=== PATIENT | male | born 1945 | race Caucasian/White ===

== ENCOUNTER 2018-07-20 16:37 | Emergency (ER) | payer MEDICARE ==
[~2018-07-20] VITALS: Ht 182.9 cm; Wt 111.4 kg
[~2018-07-20 16:37] MED LIST: CALCIUM CARBON600 M1 PO; CEPHALEXIN500 M1 PO; PRINIVIL20 MG PO; TOPROL XL100 MG PO; ZOCOR 20MG20 MG PO
[2018-07-20 16:44] VITALS: TEMP 97.8
[2018-07-20] MEDS ORDERED: HCTZ12.5TAB PO (17:01)
[2018-07-20] MEDS ORDERED: WELLBUTRIN XL300 M1 PO (17:02)
[2018-07-20 17:26] LABS: BASO % 0.3 % (0.0-2.0); EOS # 0.1 (0.0-0.7); EOS % 0.9 % (0-4.0); GRAN # 12.5 (1.4-6.5); GRAN % 82.8 % (42.2-75.2); HEMATOCRIT 49.9 % (42.0-52.0); HEMOGLOBIN 16.5 g/dl (13.5-18.0); LYMPH # 1.7 (1.2-3.4); LYMPH % 11.5 % (20.0-51.0); MEAN CELL VOLUME 89 fl (80.0-100.0); MEAN CORPUSCULAR HEMOGLOBIN 30 pg (27.0-31.0); MEAN CORPUSCULAR HGB CONC 33 g/dl (33.0-37.0); MEAN PLATELET VOLUME 9.6 fl (7.4-10.4); MONO # 0.5 (0.1-0.6); MONO % 3.5 % (1.7-9.3); PLATELET COUNT 222 K/mm3 (130-400); RED BLOOD COUNT 5.58 M/mm3 (4.20-5.60); REDCELL DISTRIBUTION WIDTH-CV 12.3 % (11.5-14.5)
[2018-07-20 17:40] LABS: PROTHROMBIN TIME 11.6 SECONDS (9.7-12.8)
[2018-07-20 17:43] LABS: ALBUMIN 4.5 gm/dL (3.5-5.0); BILIRUBIN,TOTAL 1.5 mg/dL (0.0-1.0); CALCIUM 8.6 mg/dL (8.4-10.2); CREATININE, serum 1.42 mg/dL (0.66-1.25); POTASSIUM 4.5 mmol/L (3.4-5.0); TOTAL PROTEIN 7.9 gm/dL (6.4-8.2)
[2018-07-21 00:45] VITALS: BP 105/59
[2018-07-21 01:20] VITALS: PULSE 60
== END 2018-07-21 01:20 | disposition short-term general hospital (02) ==
LOC: COL.ER 16:37
PROVIDERS: Emergency Medicine
DX: S32.401A Unspecified fracture of right acetabulum, initial encounter for closed fracture (principal); S32.10XA Unspecified fracture of sacrum, initial encounter for closed fracture; S32.501A Unspecified fracture of right pubis, initial encounter for closed fracture; I10 Essential (primary) hypertension; Z95.1 Presence of aortocoronary bypass graft; Z79.82 Long term (current) use of aspirin; W01.0XXA Fall on same level from slipping, tripping and stumbling without subsequent striking against object, initial encounter; Y92.009 Unspecified place in unspecified non-institutional (private) residence as the place of occurrence of the external cause
CPT/HCPCS: J2405; J3010

== ENCOUNTER 2018-09-25 09:57 | Inpatient (IN) | payer MEDICARE, OTHER ==
[2018-09-25] VITALS (11 sets, daily range): BP systolic 94–131; BP diastolic 38–70; PULSE 59–83; TEMP 97.2–98.8
[~2018-09-25] VITALS: Ht 188 cm; Wt 109.1 kg
[~2018-09-25 09:57] MED LIST changes: +HCTZ12.5TAB PO; +WELLBUTRIN XL300 M1 PO
[2018-09-25 11:05] LABS: BASO % 0.3 % (0.0-2.0); EOS # 0.1 (0.0-0.7); EOS % 0.7 % (0-4.0); GRAN # 11.1 (1.4-6.5); GRAN % 82.2 % (42.2-75.2); HEMATOCRIT 42.4 % (42.0-52.0); HEMOGLOBIN 14.1 g/dl (13.5-18.0); LYMPH # 1.7 (1.2-3.4); LYMPH % 12.8 % (20.0-51.0); MEAN CELL VOLUME 89 fl (80.0-100.0); MEAN CORPUSCULAR HEMOGLOBIN 30 pg (27.0-31.0); MEAN CORPUSCULAR HGB CONC 33 g/dl (33.0-37.0); MEAN PLATELET VOLUME 9.7 fl (7.4-10.4); MONO # 0.5 (0.1-0.6); MONO % 3.6 % (1.7-9.3); PLATELET COUNT 242 K/mm3 (130-400); RED BLOOD COUNT 4.76 M/mm3 (4.20-5.60); REDCELL DISTRIBUTION WIDTH-CV 13.1 % (11.5-14.5)
[2018-09-25 11:12] LABS: ALBUMIN 3.8 gm/dL (3.5-5.0); BILIRUBIN,TOTAL 1.3 mg/dL (0.0-1.0); CALCIUM 8.6 mg/dL (8.4-10.2); CREATININE, serum 1.37 mg/dL (0.66-1.25); POTASSIUM 4.2 mmol/L (3.4-5.0); TOTAL PROTEIN 6.7 gm/dL (6.4-8.2)
[2018-09-25 11:27] LABS: INR 1.1 (0.8-3.0); PROTHROMBIN TIME 12.7 SECONDS (9.7-12.8)
[2018-09-25 11:29] LABS: PARTIAL THROMBOPLASTIN TIME 32.9 SECONDS (26.0-37.0)
[2018-09-25] MEDS ORDERED: ASPIRIN E.C. 8181 MG PO (13:01)
--- NOTE | 2018-09-25 13:19 | NUR ---
Patient up from ER by larry. Alert and oriented x 3. 5 page complete. RLE appears shortened and externally rotated. Pedal pulse to right foot faint. Edema +2 to right lower extremity and +1 to left lower extremity. Patient able to feel touch and move toes of RLE. Toes appear blue to right foot. Cap refill <3 to BLE. Skin tear noted to right elbow, patient states from fall. VSS. Marty hose applied to LLE. States pain only when moving. Denies further needs at this time.
--- NOTE | 2018-09-25 13:39 | NUR ---
Moiz from surgery here to take patient to OR.
--- NOTE | 2018-09-25 16:06 | NUR ---
Patient up to room 341 by bed from ER. Alert and oriented x3. Patient oriented to room. Educated patient on sputum culture. IV to left hand infusing via pump per orders. Denies pain at this time. Denies further needs at this time.
--- NOTE | 2018-09-25 17:55 | NUR ---
Patient up from OR. Family in room. Patient drowsy. VSS. Denies pain or further needs at this time.
--- NOTE | 2018-09-25 19:13 | NUR ---
Patient alert and confused, pulled out IV. Bed alarm on.
--- NOTE | 2018-09-25 19:52 | NUR ---
Initiated iv x1 attempt to Right forarm. Tolerated procedure well. Reported off to hourly shift manager.
--- NOTE | 2018-09-25 20:00 | NUR ---
Patient alert, confused to place and time of day. States "I just need to take a leak". Reminded of ortiz catheter. Has new IV site to right forearm without redness or swelling, IVF infusing at 60cc/hr. Has dressings x2 to right hip, D/I, ice pack applied. Has oxygen at 1L/nc. Lungs diminished. Has bilateral lower extremity edema, GRACIE and SCD's on.
--- NOTE | 2018-09-26 00:40 | NUR ---
Patient restless, thinks he needs to go lay down in his bed. Offered pain meds for right hip pain. Takes [place] 5/325 2 tabs for pain 6/10 with movement. IVF continue to right forearm without redness or swelling.
[2018-09-26 03:45] VITALS: BP 93/46; PULSE 61; TEMP 97.5
--- NOTE | 2018-09-26 06:00 | NUR ---
Patient awake, no concerns offered. Oriented x2. Has not been impulsive and has left his IV site in this shift.
[2018-09-26 06:49] LABS: BASO % 0.2 % (0.0-2.0); CALCIUM 7.5 mg/dL (8.4-10.2); CREATININE, serum 1.76 mg/dL (0.66-1.25); EOS % 0.2 % (0-4.0); GRAN # 7.6 (1.4-6.5); GRAN % 62.5 % (42.2-75.2); LYMPH # 3.1 (1.2-3.4); LYMPH % 25.8 % (20.0-51.0); MEAN CELL VOLUME 90 fl (80.0-100.0); MEAN CORPUSCULAR HGB CONC 32 g/dl (33.0-37.0); MONO # 1.3 (0.1-0.6); MONO % 10.8 % (1.7-9.3); PLATELET COUNT 210 K/mm3 (130-400); POTASSIUM 4.8 mmol/L (3.4-5.0); RED BLOOD COUNT 3.58 M/mm3 (4.20-5.60); REDCELL DISTRIBUTION WIDTH-CV 13.3 % (11.5-14.5)
[2018-09-26 06:56] LABS: HEMATOCRIT 32.2 % (42.0-52.0); HEMOGLOBIN 10.4 g/dl (13.5-18.0); MEAN CORPUSCULAR HEMOGLOBIN 29 pg (27.0-31.0); PRE ALBUMIN 18.6 mg/dL (17.6-36.0)
[2018-09-26 07:25] VITALS: BP 94/38; PULSE 61; TEMP 98.1
[2018-09-26 07:50] VITALS: BP 94/38; PULSE 61; TEMP 98.1
--- NOTE | 2018-09-26 08:50 | NUR ---
Patient in bed resting. Alert and oriented x 3. Shift assessment complete. x3 incision to lateral thigh, CDI with gauze. States pain 4-5/10 to right hip, given medications per orders. Pedal pulses intact. Edema noted to BLE, +1 to left lower extremity and +2 to right lower extremity. Cap refill <3 sec. Assisted patient to order breakfast. Denies further needs at this time.
--- NOTE | 2018-09-26 10:26 | NUR ---
SW attended clinical rounds to discuss discharge plannning. Patient lives independently at home with his . Patient's PCP is Dr Booth and he obtains prescriptions from [facility]. There is no DME or home health services reported. Doctor spoke with patient about needing post acute rehab and mentioned IPR. SW followed up with patient about rehab options. Patient is interested in IPR but would like to speak with his about choices. SW will follow up later today.
--- NOTE | 2018-09-26 10:30 | NUR ---
Pt. VSS. Lung sounds clear to auscultation. Bowel sounds active x4 quadrants. Pt. up to chair with PT. Tolerated well.
--- NOTE | 2018-09-26 10:51 | NUR ---
First visit from the inside phone sales. No needs right now.
--- NOTE | 2018-09-26 10:58 | NUR ---
Notified Jeaneth LI of low urine output, increased fluids to 100ml/hr. Will continue to monitor
[2018-09-26 12:30] LABS: COLLECTION METHOD CATHETER
[2018-09-26 12:42] VITALS: BP 103/40; PULSE 66; TEMP 97.8
[2018-09-26 12:52] LABS: AMORPHOUS CRYSTAL Present /uL; HYALINE CAST >12 /lpf; MUCOUS Present /lpf; PH 5 (5-8); SQUAMOUS EPITHELIAL None Seen /hpf; URINE APPEARANCE Cloudy; URINE BACTERIA Moderate /hpf; URINE BILIRUBIN Negative (NEGATIVE); URINE BLOOD 3+ (NEGATIVE); URINE COLOR Amber; URINE GLUCOSE 1+ (NEGATIVE); URINE KETONE Trace (NEGATIVE); URINE LEUKOCYTE ESTERASE Trace (NEGATIVE); URINE NITRATE Negative (NEGATIVE); URINE PROTEIN(semi-quant) 2+ (NEGATIVE); URINE RBC >50 /hpf
--- NOTE | 2018-09-26 13:18 | NUR ---
Pt. refused lunch, consumed chocolate shake brought in by family. CMS checks to BLE WNL. Pt. transferred from chair to bed with x3 assist and gaitbelt.
--- NOTE | 2018-09-26 15:21 | NUR ---
LETITIA spoke with patient's , Jenniffer ([phone]), about rehab choices. LETITIA reported patient was interested in IPR but did not have a second choice. Jenniffer reports patient was in [place] for 6 weeks in June when he fractured his hip. Jenniffer reports she would like the second choice to be [facility] rapid recovery. LETITIA will fax referral to [facility].
[2018-09-26 16:36] VITALS: BP 126/44; PULSE 68; TEMP 97.2
--- NOTE | 2018-09-26 18:22 | NUR ---
Contacted Irma GRIFFIN, patient on Q6 accuchecks, history of DM. No episodes of hyper or hypoglycemia currently. Will Discontinue accuchecks.
--- NOTE | 2018-09-26 18:24 | NUR ---
Patient in bed resting. Denies pain at this time. Was up in chair throughout the day. IV fluids infusing per orders to right forarm. Chavarria maintained to dependent drainage with small amount of hazy yellow urine present. Denies further needs at this time. Will report off to night supervisor.
[2018-09-26 19:13] VITALS: BP 124/49; PULSE 66; TEMP 97.7
--- NOTE | 2018-09-26 20:35 | NUR ---
Patient awake, reports pain to right hip 01/28. Medicated with [place] 5/325mg 2 tabs at this time, as well as scheduled HS meds. IVF infusing to right forearm without redness or swelling. Chavarria catheter to BSD with yellow urine. Swelling to right lower leg, has SCD's and GRACIE hose on bilaterally. Limited movement of right leg. Incisions with bruising noted to upper right hip site. Oriented x3.
[2018-09-27 00:47] VITALS: BP 107/48; PULSE 64; TEMP 98
--- NOTE | 2018-09-27 02:00 | NUR ---
Patient awake, holding onto ortiz catheter, stated "I don't want it to get away." Is oriented to place and self. Reports pain to right leg 7/10, medicated with [place] 2 tabs at this time.
[2018-09-27 04:10] VITALS: BP 125/41; PULSE 68; TEMP 98.3
--- NOTE | 2018-09-27 06:25 | NUR ---
Patient resting quietly in bed.
[2018-09-27 09:01] VITALS: BP 123/46; PULSE 73; TEMP 97
--- NOTE | 2018-09-27 10:59 | NUR ---
Patient was sleeping.
[2018-09-27 11:00] LABS: BASO % 0.2 % (0.0-2.0); EOS # 0.1 (0.0-0.7); EOS % 0.9 % (0-4.0); GRAN # 7.8 (1.4-6.5); GRAN % 77.7 % (42.2-75.2); LYMPH # 1.5 (1.2-3.4); LYMPH % 15.2 % (20.0-51.0); MEAN CELL VOLUME 92 fl (80.0-100.0); MEAN CORPUSCULAR HGB CONC 33 g/dl (33.0-37.0); MEAN PLATELET VOLUME 10.1 fl (7.4-10.4); MONO # 0.6 (0.1-0.6); MONO % 5.5 % (1.7-9.3); PLATELET COUNT 181 K/mm3 (130-400); RED BLOOD COUNT 2.86 M/mm3 (4.20-5.60); REDCELL DISTRIBUTION WIDTH-CV 13.4 % (11.5-14.5)
[2018-09-27 11:02] LABS: HEMATOCRIT 26.4 % (42.0-52.0); HEMOGLOBIN 8.6 g/dl (13.5-18.0); MEAN CORPUSCULAR HEMOGLOBIN 30 pg (27.0-31.0)
[2018-09-27 11:10] LABS: CALCIUM 7.6 mg/dL (8.4-10.2); CREATININE, serum 1.28 mg/dL (0.66-1.25); POTASSIUM 4.1 mmol/L (3.4-5.0)
[2018-09-27 12:17] VITALS: BP 127/45; PULSE 74; TEMP 97.5
[2018-09-27 16:37] VITALS: BP 113/59; PULSE 74; TEMP 98.4
--- NOTE | 2018-09-27 18:00 | NUR ---
Confused at times. Right hip pain improved with prn [place]. Appetite poor. Fluids encouraged. Sat at side of bed with assistance.
--- NOTE | 2018-09-27 19:45 | NUR ---
PT AWAKE, ALERT BUT CONFUSED. COOPERATIVE. NO RESP DISTRESS. PT REPORTS PAIN RT HIP. UNABLE TO PROVIDE LEVEL. SEE MAR FOR PAIN MED GIVEN. NEW F/C SECURE PLACED. GRACIE HOSE OFF. SCD'S ON. PILLOW UNDER RT FOOT. ICE PACK TO RT HIP. CALL LIGHT IN REACH. BED ALARM SET.
[2018-09-27 21:45] VITALS: BP 107/47; PULSE 70; TEMP 97.5
[2018-09-28] VITALS (7 sets, daily range): BP systolic 101–116; BP diastolic 14–77; PULSE 66–87; TEMP 97.6–98.6
[2018-09-28 07:24] LABS: BASO % 0.3 % (0.0-2.0); EOS # 0.2 (0.0-0.7); EOS % 2.4 % (0-4.0); GRAN # 5.9 (1.4-6.5); GRAN % 68.2 % (42.2-75.2); LYMPH # 1.8 (1.2-3.4); LYMPH % 21.3 % (20.0-51.0); MEAN CELL VOLUME 90 fl (80.0-100.0); MEAN CORPUSCULAR HGB CONC 33 g/dl (33.0-37.0); MEAN PLATELET VOLUME 10.1 fl (7.4-10.4); MONO # 0.6 (0.1-0.6); PLATELET COUNT 191 K/mm3 (130-400); RED BLOOD COUNT 2.72 M/mm3 (4.20-5.60); REDCELL DISTRIBUTION WIDTH-CV 13.4 % (11.5-14.5)
[2018-09-28 07:32] LABS: HEMATOCRIT 24.6 % (42.0-52.0); MEAN CORPUSCULAR HEMOGLOBIN 29 pg (27.0-31.0)
[2018-09-28 07:56] LABS: ALBUMIN 2.7 gm/dL (3.5-5.0); BILIRUBIN,TOTAL 0.9 mg/dL (0.0-1.0); CREATININE, serum 1.11 mg/dL (0.66-1.25); POTASSIUM 4.2 mmol/L (3.4-5.0); TOTAL PROTEIN 5.2 gm/dL (6.4-8.2)
--- NOTE | 2018-09-28 18:30 | NUR ---
Took fluids and ate a little better today. Prunes given per request for constipation. Declined MOM or suppository. Urine output remains marginal. Less complaints of incisional pain today. Unable to stand to transfer with therapy. Transferred with sit to stand lift to recliner chair. Sat up for several hours.
--- NOTE | 2018-09-28 20:31 | NUR ---
PT REMAINS CONFUSED TO PLACE AND TIME. PLEASANT AND COOPERATIVE. STILL EATING SUPPER WITH MUCH ENC. CALL LIGHT IN REACH. BED ALARM SETY.
--- NOTE | 2018-09-28 23:00 | NUR ---
PT INCONTINENT OF LIQUID DARK BROWN STOOL. PT VERY CONFUSED. AGITATED WITH LINEN CHANGE AND REPOSITIONING. CATH CARE PROVIDED. POSTERIOR PENIS HAS POCKET OF EDEMA- FLUID FILLED.
[2018-09-29 04:51] VITALS: BP 133/51; PULSE 84; TEMP 98.5
--- NOTE | 2018-09-29 06:31 | NUR ---
HERE. NEW ORDER TO LEAVE RT HIP DRSG OFF IF NO DRAINAGE.
[2018-09-29 07:12] LABS: BASO % 0.4 % (0.0-2.0); EOS # 0.3 (0.0-0.7); EOS % 3.7 % (0-4.0); GRAN # 4.9 (1.4-6.5); GRAN % 66.5 % (42.2-75.2); LYMPH # 1.6 (1.2-3.4); LYMPH % 21.7 % (20.0-51.0); MEAN CELL VOLUME 92 fl (80.0-100.0); MEAN CORPUSCULAR HGB CONC 32 g/dl (33.0-37.0); MONO # 0.5 (0.1-0.6); PLATELET COUNT 208 K/mm3 (130-400); RED BLOOD COUNT 2.58 M/mm3 (4.20-5.60); REDCELL DISTRIBUTION WIDTH-CV 13.8 % (11.5-14.5)
[2018-09-29 07:13] LABS: HEMATOCRIT 23.6 % (42.0-52.0); HEMOGLOBIN 7.6 g/dl (13.5-18.0); MEAN CORPUSCULAR HEMOGLOBIN 29 pg (27.0-31.0)
[2018-09-29 07:25] LABS: CALCIUM 7.8 mg/dL (8.4-10.2); CREATININE, serum 1.03 mg/dL (0.66-1.25); MAGNESIUM 1.9 mg/dL (1.6-2.3); POTASSIUM 3.8 mmol/L (3.4-5.0)
[2018-09-29 09:00] VITALS: BP 145/55; PULSE 77; TEMP 97.6
--- NOTE | 2018-09-29 12:00 | NUR ---
[facility] unable to accept patient due to him not participating in PT/OT. LETITIA called Jacobo at [facility] and left a VM.
[2018-09-29 12:17] VITALS: BP 104/41; PULSE 63; TEMP 97.6
--- NOTE | 2018-09-29 22:00 | NUR ---
Assessment complete see flow sheet. Pt seems more confused and agitated compared to earlier. States "Please just be quiet" and "why are you in my room." After re-orienting remembered being in the hospital. Denies any pain needing intervention. Bed alarm fabrication specialist light within reach. Encouraged to call for questions or concerns. Verbalizes understanding. Will continue to monitor and re-orient to time and place as needed.
[2018-09-30 00:50] VITALS: BP 133/56; PULSE 82; TEMP 97.2
--- NOTE | 2018-09-30 00:50 | NUR ---
Patient was incontinent of urine at this time requiring a bed change, was able to use the urinal earlier in the shift. New linens, pericare and a brief applied. Patient appears to have some intermittent confusion. Right hip/thigh incisions x 3 with steri-strips remain CDI with bruising noted to that hip. A fresh ice pack applied at this time. Bed remains in a low position with bed alarm on and call light within reach.
--- NOTE | 2018-09-30 04:00 | NUR ---
Pt resting in bed at this time, has removed gown and laying with arms extended in air. . Has had several episodes of confusion through machinist 2nd shift. Denies pain and shows no signs of pain at this time. Call light within reach and bed alarm on. Will continue to monitor.
[2018-09-30 04:40] VITALS: BP 150/73; PULSE 86; TEMP 98.2
[2018-09-30 07:02] LABS: BASO % 0.3 % (0.0-2.0); EOS # 0.2 (0.0-0.7); EOS % 3.1 % (0-4.0); GRAN # 4.7 (1.4-6.5); LYMPH # 1.5 (1.2-3.4); LYMPH % 20.8 % (20.0-51.0); MEAN CELL VOLUME 90 fl (80.0-100.0); MEAN CORPUSCULAR HGB CONC 33 g/dl (33.0-37.0); MEAN PLATELET VOLUME 9.5 fl (7.4-10.4); MONO # 0.6 (0.1-0.6); MONO % 8.8 % (1.7-9.3); PLATELET COUNT 256 K/mm3 (130-400); RED BLOOD COUNT 2.64 M/mm3 (4.20-5.60); REDCELL DISTRIBUTION WIDTH-CV 13.8 % (11.5-14.5)
[2018-09-30 07:03] LABS: HEMATOCRIT 23.7 % (42.0-52.0); HEMOGLOBIN 7.7 g/dl (13.5-18.0); MEAN CORPUSCULAR HEMOGLOBIN 29 pg (27.0-31.0)
[2018-09-30 07:35] VITALS: BP 142/62; PULSE 84; TEMP 98
--- NOTE | 2018-09-30 09:14 | NUR ---
Initial visit; Oniel thanked Quality Assurance Auditor for looking in on him, listening and offering God's blessings.
[2018-09-30] MEDS ORDERED: TOPROL XL 50MG50 MG PO (10:11)
[2018-09-30] MEDS ORDERED: NORCO 325 MG-51 TAB PO (10:12)
[2018-09-30] MEDS ORDERED: TYLENOL 325MG325 MG PO (10:13)
[2018-09-30] MEDS ORDERED: DUO-KAPS1 CAP PO (10:14)
[2018-09-30] MEDS ORDERED: SENOKOT S 50 MG1 TAB PO (10:14)
[2018-09-30] MEDS ORDERED: VITAMIN C500 MG PO (10:14)
[2018-09-30] MEDS ORDERED: ASPI325T6 PO (10:18)
[2018-09-30 11:40] VITALS: BP 115/73; PULSE 69; TEMP 97.9
--- NOTE | 2018-09-30 11:59 | NUR ---
Patient accepted by [facility] however he will have the $167 copay as he has been there for 35 days in July and Aug. LETITIA met with patient to discuss this. He would like his Jenniffer contacted. LETITIA called and left VM will attempt again later.
--- NOTE | 2018-09-30 15:53 | NUR ---
LETITIA talked with patients . She reports they cannot afford the co pay and that they should have medicare part a and b as well as a secondary. LETITIA called Tanika in finance as well as Jacobo at [facility] who are both looking into it. Tanika reports everything she has found shows only [employer] as a payer source. LETITIA set up appointment for to meet with Finance tomorrow at 9:30/10. Jacobo from [facility] discussed medicaid michael as well as is going to work with her to figure out what happened and why she doesnt have a secondary. LETITIA discussed [facility] as a secondary option as she cannot afford a copay. She is hesitant since it is so far from [place] but is agreeable. LETITIA student made referral. LETITIA informed PA and nurse of discharge status.
[2018-09-30 15:58] VITALS: BP 118/52; PULSE 76; TEMP 98
--- NOTE | 2018-09-30 16:53 | NUR ---
LETITIA faxed update to Charmaine at [facility].
[2018-09-30 19:24] VITALS: BP 129/62; PULSE 97; TEMP 99
--- NOTE | 2018-09-30 22:21 | NUR ---
ASSESSMENT COMPLETE. SITTING UP IN CHAIR AT THIS TIME. DENIES PAIN BUT WOULD LIKE TO LAY DOWN IN BED AT THIS TIME. EPISDOES OF CONFUSION BUT WILL RE-ORIENT ON OCCASION AND REALIZE THAT HE IS IN THE HOSPITAL. LCTA. EDEMA TO THE RIGHT LOWER EXTREMITY. ASSISTED TO BED-PIVOT WITH 3 STAFF. TOLERATED WELL. CALL LIGHT WITHIN REACH-BED ALARM ON. WILL CONTINUE TO MONITOR.
[2018-10-01] VITALS (7 sets, daily range): BP systolic 101–138; BP diastolic 39–58; PULSE 70–95; TEMP 97.3–98.4
--- NOTE | 2018-10-01 05:10 | NUR ---
BED LINENS CHANGED AT THIS TIME. CHARLES CARE COMPLETE. RATING PAIN 5/10-NORCO GIVEN PER DR ORDER-WILL MONITOR EFFECTIVENESS. SLEPT MOST OF SHIFT-SOME CONFUSION NOTED-UNAWARE OF WHERE HE WAS OR TIME BUT WOULD REORIENT SELF AFTER QUESTIONS. VS STABLE. NEW ICE PACK APPLIED. DENIES ANY QUESTIONS OR CONCERNS AT THIS TIME. WILL MONITOR.
--- NOTE | 2018-10-01 09:00 | NUR ---
Patient alert and oriented, answers questions appropriately. See assessment. Patient engages appropriately in conversation, aware of month and states "its been a long winter". Patient told name of this nurse, LEAD CAREGIVER and community service coordinator that he will likely see throughout the day. Patient requests urinal be emptied, and states "that way it will be empty when I need it after breakfast". When inquired as to why patient is in the hospital, states "I fell and broke my hip". Incisions to RLE with steri strips intact, no redness or drainage noted. Neuros to RLE intact, no numbness or tingling. Able to move RLE with limited ROM, patient up in chair at this time. No c/o pain or discomfort. No other c/o at this time.
--- NOTE | 2018-10-01 12:30 | NUR ---
Patient up in chair at this time, requests pain medication. Patient refers to this nurse by name and states "I saw Sintia today to, like you told me this morning. No other c/o at this time.
--- NOTE | 2018-10-01 14:54 | NUR ---
LETITIA talked with Nando at [facility] who reports they are still waiting on insurance approval as well as their docs approval. LETITIA met with patient and to discuss placement. They applied for Medicaid today with Carlos in financial. reports they get billed for two different medicares each month and that she is going to call them and see what happened this afternoon while with the patient. [facility] needed a discription of patients home. Family reports it is a ranch home with two stairs to access. He has a walk in shower and shower chair but that is all that is set up. LETITIA relayed this to Charmaine at [facility]. LETITIA left message with Jacobo at [facility].
--- NOTE | 2018-10-01 15:34 | NUR ---
hold worker met with therapist and confirmed that patient is a max 1-2 person for transfers and patient ambulated from reclyner to edge of bed. Worker contacted Jacobo and advised that spouse completed medicaid application and Jacobo stated that [facility] Medicaid pending. Awaiting [facility] screen/insurance approval. Worker contacted spouse and advised of the above information. Worker and spouse discussed therapy information and that discharge to home is not a safe plan. Spouse verbalizes understanding of the above information and discharge plan [facility] or [facility], pending acceptance by facilities.
--- NOTE | 2018-10-01 22:00 | NUR ---
ASSESSMENT COMPLETE. VS WNL. A&OX3. CONCERNED ABOUT WHETHER OR NOT HE WILL HAVE SOME PLACE TO GO TOMORROW FOR REHAB. STATES "WE CANT AFFORD $150/DAY" HEALTH EDITOR CURRENTLY WORKING CASE AND REASSURED HIM HE WILL BE ABLE TO DISCUSS TOMORROW AM WITH THEM. C/O PAIN 10/10 IN RIGHT HIP. NORCO [address] ORDER. INCISION TO RIGHT HIP X3-WELL APPROXIMATED-NO S/S OF INFECTION NOTED. BED IN LOWEST POSITION. BED ALARM ON. CALL LIGHT WITHIN REACH. DENIES ANY OTHER QUESTIONS OR CONCERN. WILL MONITOR.
[2018-10-02 04:45] VITALS: BP 108/54; PULSE 72; TEMP 98
--- NOTE | 2018-10-02 06:00 | NUR ---
RESTED THROUGH NIGHT WITH NO C/O. LESS CONFUSED THIS SHIFT. VS STABLE. ICE APPLIED THIS MORNING. WILL CONTINUE TO MONITOR.
[2018-10-02 08:28] VITALS: BP 126/45; PULSE 77; TEMP 97.7
--- NOTE | 2018-10-02 09:18 | NUR ---
LETITIA called mike with [employer] and left voicemail for update. will follow up.
[2018-10-02 12:13] VITALS: BP 106/38; PULSE 61; TEMP 98.1
--- NOTE | 2018-10-02 15:17 | NUR ---
Charmaine with [facility] reports they denied [facility] and approved [facility]. Jacobo with [facility] talked with charmaine who reports the patient would be starting at day one of a new skilled stay so there wouldnt be a copay until day 20. informed and agreeable. Patient is dc today [facility]. Nurse and Dr informed of plan. Transportation set for 4pm via wheelchair van
--- NOTE | 2018-10-02 15:53 | NUR ---
SW student met with patient to discuss IM form. SW student presented and explained the IM form. Patient verablized understanding and signed. SW student provided a copy.
[2018-10-02 15:55] VITALS: BP 106/38; PULSE 61; TEMP 98.1
== END 2018-10-02 16:15 | DRG 481 ==
LOC: COL.ER 09:57 → SURG 10:26
PROVIDERS: Emergency Medicine; Family Medicine; Nurse Practitioner Family; Orthopaedic Surgery; Physician Assistant; ADMIT Internal Medicine
PROC: 0QS636Z Reposition Right Upper Femur with Intramedullary Internal Fixation Device, Percutaneous Approach (ICD-10-PCS; principal; 2018-09-25 14:00)
DX: S72.141A Displaced intertrochanteric fracture of right femur, initial encounter for closed fracture (principal); D62 Acute posthemorrhagic anemia; N17.9 Acute kidney failure, unspecified; N39.0 Urinary tract infection, site not specified; S72.21XA Displaced subtrochanteric fracture of right femur, initial encounter for closed fracture; W18.39XA Other fall on same level, initial encounter; E78.5 Hyperlipidemia, unspecified; Z95.0 Presence of cardiac pacemaker; I10 Essential (primary) hypertension; Z87.891 Personal history of nicotine dependence; I95.9 Hypotension, unspecified; K59.00 Constipation, unspecified; Z66 Do not resuscitate
CPT/HCPCS: 99222-AI; 99231-AI; 99232-AI; 99233-AI; 99239; A4216; A9284; C1713; J0690; J0696; J2250; J2370; J2405; J2704; J3010; J7030; J7040

== ENCOUNTER → 2020-04-20 | Outpatient (CLI) | payer MEDICARE ==
[~2020-04-20] MED LIST changes: +ASPI325T6 PO; +ASPIRIN E.C. 8181 MG PO; +DUO-KAPS1 CAP PO; +NORCO 325 MG-51 TAB PO; +SENOKOT S 50 MG1 TAB PO; +TOPROL XL 50MG50 MG PO; +TYLENOL 325MG325 MG PO; +VITAMIN C500 MG PO
== END ==
LOC: COL.RAD 03-25 08:15
DX: G31.9 Degenerative disease of nervous system, unspecified (principal)

== ENCOUNTER 2021-10-27 19:41 | Inpatient (IN) | payer MEDICARE ==
[~2021-10-27] VITALS: Ht 180.3 cm; Wt 76.7 kg
[2021-10-27 20:07] LABS: BASO % 0.2 % (0.0-2.0); EOS % 0.4 % (0.0-4.0); GRAN # 7.2 K/mm3 (1.4-6.5); GRAN % 79.2 % (42.2-75.2); HEMATOCRIT 39.1 % (42.0-52.0); HEMOGLOBIN 12.8 g/dl (13.5-18.0); LYMPH # 1.3 K/mm3 (1.2-3.4); LYMPH % 14.4 % (20.0-51.0); MEAN CELL VOLUME 88 fl (80.0-100.0); MEAN CORPUSCULAR HEMOGLOBIN 29 pg (27-31); MEAN CORPUSCULAR HGB CONC 33 g/dl (33.0-37.0); MEAN PLATELET VOLUME 9.2 fl (7.4-10.4); MONO # 0.5 K/mm3 (0.1-0.6); MONO % 5.2 % (1.7-9.3); PLATELET COUNT 287 K/mm3 (130-400); RED BLOOD COUNT 4.46 M/mm3 (4.20-5.60)
[2021-10-27 20:10] LABS: INR 1.2 (0.8-3.0); PROTHROMBIN TIME 13.2 SECONDS (9.7-12.8)
[2021-10-27 20:18] LABS: ALBUMIN 2.6 gm/dL (3.4-4.8); C-REACTIVE PROTEIN 1.34 mg/dL (0.00-0.50); CALCIUM 7.5 mg/dL (8.4-10.2); CREATININE, serum 1.55 mg/dL (0.72-1.25); POTASSIUM 4.1 mmol/L (3.5-4.5); TOTAL PROTEIN 5.4 gm/dL (6.2-8.1)
[2021-10-27 20:24] LABS: TROPONIN-I 0.011 ng/mL (0.00-0.033)
[2021-10-28] VITALS (8 sets, daily range): BP systolic 115–156; BP diastolic 66–94; PULSE 60–121; TEMP 97.2–98
--- NOTE | 2021-10-28 00:29 | NUR ---
Patient arrived to the unit, alert but disoriented. VSS. Telemetry in place. Unable to transfer himself to the bed in the room. Unable to fill the intake due to AMS. Hygiene was provided, yellow gown and fall precautions implemented. NS at 100ml/hr. Continue monitoring.
[2021-10-28 01:13] LABS: COLLECTION METHOD CLEAN CATCH
[2021-10-28 01:26] LABS: MUCOUS Present (NOT PRESENT); PH 5 (5-8); URINE APPEARANCE Hazy (CLEAR/HAZY); URINE BACTERIA None Seen /hpf (NONE SEEN); URINE BILIRUBIN Negative (NEGATIVE); URINE BLOOD 1+ (NEGATIVE); URINE COLOR Yellow (YELLOW); URINE GLUCOSE Negative (NEGATIVE); URINE KETONE Trace (NEGATIVE); URINE LEUKOCYTE ESTERASE Negative (NEGATIVE); URINE NITRATE Negative (NEGATIVE); URINE PROTEIN(semi-quant) 1+ (NEGATIVE); URINE UROBILINOGEN Negative (NEGATIVE)
[2021-10-28 01:44] LABS: ARTERIAL BLD GAS O2 SATURATION 90.1 % (92-100); ARTERIAL BLD GAS TCO2 CT 22.7; ARTERIAL BLOOD GAS BASE EXCESS -4.9 (-2-2); ARTERIAL BLOOD GAS HCO3 21.4 meq/L (22-26); ARTERIAL BLOOD GAS PO2 63.3 mmHg (80-100)
[2021-10-28] MEDS ORDERED: MULTAQ400 MG PO (04:04)
[2021-10-28] MEDS ORDERED: ASPIRIN 81M81 MG/TA2 PO (04:04)
[2021-10-28] MEDS ORDERED: ARICEPT10 MG PO (04:04)
[2021-10-28] MEDS ORDERED: ZOCOR 40MG40 MG PO (04:05)
[2021-10-28] MEDS ORDERED: TOPROL XL100 MG PO (04:05)
[2021-10-28] MEDS ORDERED: MASON NATURAL2000 IU PO (04:05)
[2021-10-28] MEDS ORDERED: HCTZ12.5TAB PO (04:05)
[2021-10-28 05:17] LABS: TRICYCLIC ANTIDEPRESS URINE NEGATIVE
--- NOTE | 2021-10-28 07:25 | NUR ---
Patient has been confuse along the night. He is receiving fluids. Mitts in place to avoid pulling his ortiz. Report will be given to day RN.
--- NOTE | 2021-10-28 10:00 | NUR ---
sawmill worker met with patient to discuss discharge plan. Patient currently lives at home with his Jenniffer ([phone]). Patient reports that he has been independent with his ADL's at home. Reports that he does have a cane but " i don't use it ". Patient reports to no home oxygen needs. PCP is Dr. Booth and he utilizes [facility] for perscriptions with no cost difficulty. When asked if he had a DPOA-HC established, he stated yes and that his agents were his "parents". After redirecting from his son he stated that it was his . During interaction patient appeard groggy and was trying to drink his oatmeal. Collaborated with hospitalist and the grogginess/confusion appears to be the lingering affects from the CBD gummies. Patient is planning on returning home once medically ready. PT/OT sridevi burnett'naresh. Discharge plan: Home; pending PT/OT lex's
--- NOTE | 2021-10-28 10:55 | NUR ---
PT IS A/O X4 THIS AM. FAMILY AT BEDSIDE, VSS, POSSIBLE DC TOMMORROW. DR. LEIGH ROUNDED AND SPOKE WITH PT ABOUT GOING HOME AND AVOIDING CBD.
[2021-10-28 11:40] LABS: BASO % 0.2 % (0.0-2.0); EOS % 0.4 % (0.0-4.0); GRAN # 8.6 K/mm3 (1.4-6.5); GRAN % 77.7 % (42.2-75.2); HEMATOCRIT 37.9 % (42.0-52.0); HEMOGLOBIN 12.2 g/dl (13.5-18.0); LYMPH # 1.7 K/mm3 (1.2-3.4); LYMPH % 15.3 % (20.0-51.0); MEAN CELL VOLUME 89 fl (80.0-100.0); MEAN CORPUSCULAR HEMOGLOBIN 29 pg (27-31); MEAN CORPUSCULAR HGB CONC 32 g/dl (33.0-37.0); MEAN PLATELET VOLUME 9.2 fl (7.4-10.4); MONO # 0.7 K/mm3 (0.1-0.6); MONO % 6.1 % (1.7-9.3); PLATELET COUNT 255 K/mm3 (130-400); RED BLOOD COUNT 4.28 M/mm3 (4.20-5.60)
[2021-10-28 11:55] LABS: CREATININE, serum 1.04 mg/dL (0.72-1.25); POTASSIUM 3.5 mmol/L (3.5-4.5)
--- NOTE | 2021-10-28 13:54 | NUR ---
While patient was sleeping, animal laboratory helper offered a prayer.
--- NOTE | 2021-10-28 23:22 | NUR ---
PATIENT ALERT AND PARTIALLY ORIENTED. SOME CONFUSION NOTED. JEFFERSON TO DD WITH CLEAR YELLOW OUTPUT. TELE REPORTING PACED RHYTHM. NEUROCHECKS WNL. IV REESTARTED TO R FA. X1 BLANCHABLE REDDENED AREA TO LOWER BACK, MEPILEX APPLIED. X1 STAGE 2 ULCER TO COCCYX, MEPILEX APPLIED. FULL BED CHANGE AND GOWN CHANGE COMPLETED. PATIENT WIPED DOWN WITH PERSONAL CLEANSING CLOTHS. DENIES PAIN WHEN ASKED.
[2021-10-29 03:33] VITALS: BP 167/83; PULSE 65; TEMP 97.7
--- NOTE | 2021-10-29 04:08 | NUR ---
notified by gas dispenser that bp was 167/83. discussed with torey. order to restart home metoprolol 50mg. will give first dose now then daily at 0900.
[2021-10-29 07:14] VITALS: BP 194/74; PULSE 71; TEMP 97
[2021-10-29] MEDS ORDERED: ASPIRIN 81M81 MG/TA2 PO (09:13)
[2021-10-29] MEDS ORDERED: ZOCOR 40MG40 MG PO (09:13)
[2021-10-29] MEDS ORDERED: MULTAQ400 MG PO (09:13)
[2021-10-29] MEDS ORDERED: ARICEPT10 MG PO (09:14)
[2021-10-29] MEDS ORDERED: DOXYCYCLINE 10100 MG PO (09:14)
[2021-10-29] MEDS ORDERED: TOPROL XL 50MG50 MG PO (09:15)
--- NOTE | 2021-10-29 10:30 | NUR ---
PT HAD LG INCONTINENT LOOSE STOOL. CLEANED PT AND PROVIDED CATH CARE.REPLACED MEPILEX TO COCCYX. PT TO DISCHARGE HOME WITH HOME HEALTH LATER TODAY. MILLINERY SALESPERSON SETTING UP HOME HEALTH SERVICES.
[2021-10-29 11:24] VITALS: BP 126/60; PULSE 59; TEMP 98
[2021-10-29 11:29] VITALS: BP 119/64; PULSE 77; TEMP 97.6
[2021-10-29 13:42] LABS: CALCIUM 7.4 mg/dL (8.4-10.2); CREATININE, serum 0.85 mg/dL (0.72-1.25); MAGNESIUM 1.7 mg/dL (1.6-2.6); POTASSIUM 4.9 mmol/L (3.5-4.5)
[2021-10-29 15:10] VITALS: BP 148/61; PULSE 84; TEMP 98.1
--- NOTE | 2021-10-29 15:12 | NUR ---
discharge instructions reviewed with pt and spouse, questions answered. pt left unit per wheel chair with staff.
--- NOTE | 2021-10-29 16:43 | NUR ---
Joseph HINES informs Manager Brand that patient is ready to discharge to home with home health. This Manager Brand met with patient and adult son Davis, at bedside to discuss HH options, and a list is given for patient/family choice. Son requests patient spouse Jenniffer assist with the decision-making and he contacts her. She is arriving soon to patient bedside to discuss. The family is also interested in long-term care options for future. Manager Brand met with patient, son, and spouse Jenniffer ([phone]) at bedside. The family would like referrals sent to [facility]. Referrals faxed. Family verbalizes understanding of choices for LTC as desired, education offered on how to contact to coordinate when patient requires. This rn social work spoke with Analy on-call FLORA, who informs patient is accepted for HH services. Joseph HINES updated; attempted telephone contact to patient spouse Jenniffer, left VM to update on plan of care. Patient and son at bedside updated. Family to transport patient to home at discharge. Clinical updates/discharge documentation faxed to [facility]. *Discharge plan: to home with [facility]. Family transport at discharge* Clinical updates/discharge documentation faxed to [facility].
== END 2021-10-29 14:40 | disposition home health service (06) | DRG 91 ==
LOC: COL.ER 19:41 → MEDICAL 22:06 → SURG 10-28 06:30
PROVIDERS: Emergency Medicine; Internal Medicine; Nurse Practitioner Family; ADMIT Internal Medicine
DX: G92.8 Other toxic encephalopathy (principal); J96.01 Acute respiratory failure with hypoxia; E43 Unspecified severe protein-calorie malnutrition; E87.2 Acidosis; N17.9 Acute kidney failure, unspecified; T50.995A Adverse effect of other drugs, medicaments and biological substances, initial encounter; I10 Essential (primary) hypertension; E78.5 Hyperlipidemia, unspecified; I48.91 Unspecified atrial fibrillation; K80.20 Calculus of gallbladder without cholecystitis without obstruction; I71.4 Abdominal aortic aneurysm, without rupture; D64.9 Anemia, unspecified; E86.0 Dehydration; R41.81 Age-related cognitive decline; T50.996A Underdosing of other drugs, medicaments and biological substances, initial encounter; Z91.138 Patient's unintentional underdosing of medication regimen for other reason; Z95.0 Presence of cardiac pacemaker; Z87.891 Personal history of nicotine dependence; Z79.82 Long term (current) use of aspirin; Z68.22 Body mass index [BMI] 22.0-22.9, adult
CPT/HCPCS: 99223-AI; 99232-AI; 99239; J0696; J1644; J7030; Q9966

== ENCOUNTER 2021-11-08 16:17 | Observation (INO) | payer MEDICARE ==
[~2021-11-08] VITALS: Ht 188 cm; Wt 81.8 kg
[~2021-11-08 16:17] MED LIST changes: +ARICEPT10 MG PO; +ASPIRIN 81M81 MG/TA2 PO; +DOXYCYCLINE 10100 MG PO; +MASON NATURAL2000 IU PO; +MULTAQ400 MG PO; +ZOCOR 40MG40 MG PO
[2021-11-08 17:23] LABS: BASO # 0.1 K/mm3 (0.0-0.2); BASO % 0.4 % (0.0-2.0); EOS # 0.1 K/mm3 (0.0-0.7); EOS % 0.5 % (0.0-4.0); GRAN # 9.1 K/mm3 (1.4-6.5); GRAN % 78.9 % (42.2-75.2); HEMATOCRIT 49.1 % (42.0-52.0); HEMOGLOBIN 16.6 g/dl (13.5-18.0); LYMPH # 1.7 K/mm3 (1.2-3.4); LYMPH % 14.8 % (20.0-51.0); MEAN CELL VOLUME 85 fl (80.0-100.0); MEAN CORPUSCULAR HEMOGLOBIN 29 pg (27-31); MEAN CORPUSCULAR HGB CONC 34 g/dl (33.0-37.0); MEAN PLATELET VOLUME 9.6 fl (7.4-10.4); MONO # 0.6 K/mm3 (0.1-0.6); PLATELET COUNT 308 K/mm3 (130-400); RED BLOOD COUNT 5.81 M/mm3 (4.20-5.60); REDCELL DISTRIBUTION WIDTH-CV 14.5 % (11.5-14.5)
[2021-11-08 17:25] LABS: ALANINE AMINOTRANSFERASE 42 U/L (0-55); ALBUMIN 3.6 gm/dL (3.4-4.8); ALKALINE PHOSPHATASE 144 U/L (40-150); ANION GAP 11 mmol/L (7-16); AST,SGOT 50 U/L (5-34); BILIRUBIN,TOTAL 2.4 mg/dL (0.2-1.2); BLOOD UREA NITROGEN 12 mg/dL (8-26); CALCIUM 8.4 mg/dL (8.4-10.2); CARBON DIOXIDE 27 mmol/L (23-31); CHLORIDE 96 mmol/L (98-107); CREATININE, serum 1.22 mg/dL (0.72-1.25); GLUCOSE 93 mg/dL (70-99); POTASSIUM 4.4 mmol/L (3.5-4.5); SODIUM 134 mmol/L (136-145); TOTAL PROTEIN 6.8 gm/dL (6.2-8.1)
[2021-11-08 17:37] LABS: TROPONIN-I < 0.010 ng/mL (0.00-0.033)
[2021-11-08 20:22] LABS: COLLECTION METHOD CLEAN CATCH
[2021-11-08 20:33] LABS: MUCOUS Present (NOT PRESENT); PH 6 (5-8); SQUAMOUS EPITHELIAL 0-2 /hpf (0-10); URINE APPEARANCE Clear (CLEAR/HAZY); URINE BACTERIA None Seen /hpf (NONE SEEN); URINE BILIRUBIN Negative (NEGATIVE); URINE BLOOD Negative (NEGATIVE); URINE COLOR Yellow (YELLOW); URINE GLUCOSE Negative (NEGATIVE); URINE KETONE Trace (NEGATIVE); URINE LEUKOCYTE ESTERASE Negative (NEGATIVE); URINE NITRATE Negative (NEGATIVE); URINE PROTEIN(semi-quant) Negative (NEGATIVE); URINE UROBILINOGEN >=4.0 (NEGATIVE)
[2021-11-08 21:35] VITALS: BP 178/85; PULSE 77; TEMP 97.4
--- NOTE | 2021-11-08 21:48 | NUR ---
PATIENT ARRIVED TO ROOM 354 AT THIS TIME. PATIENT CALM AND COOPERATIVE. PATIENT ORIENTED TO ROOM. PATIENT EATING A TURKEY SANDWICH AND DRINKING SOME WATER. DENIES PAIN OR NAUSEA.
[2021-11-09] VITALS (13 sets, daily range): BP systolic 90–186; BP diastolic 46–101; PULSE 59–83; TEMP 97.2–98.1
--- NOTE | 2021-11-09 05:57 | NUR ---
PATIENT RESTED QUIETLY IN BED THROUGHOUT THE NIGHT. NO NEW ISSUES NOTED OR REPORTED BY PATIENT. V/S STABLE.
[2021-11-09 06:21] LABS: BASO % 0.3 % (0.0-2.0); EOS # 0.1 K/mm3 (0.0-0.7); EOS % 1.5 % (0.0-4.0); GRAN # 5.3 K/mm3 (1.4-6.5); GRAN % 60.4 % (42.2-75.2); HEMATOCRIT 42.6 % (42.0-52.0); LYMPH # 2.5 K/mm3 (1.2-3.4); LYMPH % 28.9 % (20.0-51.0); MEAN CELL VOLUME 87 fl (80.0-100.0); MEAN CORPUSCULAR HGB CONC 33 g/dl (33.0-37.0); MEAN PLATELET VOLUME 9.7 fl (7.4-10.4); MONO # 0.7 K/mm3 (0.1-0.6); MONO % 8.3 % (1.7-9.3); PLATELET COUNT 275 K/mm3 (130-400); RED BLOOD COUNT 4.92 M/mm3 (4.20-5.60); REDCELL DISTRIBUTION WIDTH-CV 14.5 % (11.5-14.5)
[2021-11-09 06:26] LABS: MEAN CORPUSCULAR HEMOGLOBIN 28 pg (27-31)
[2021-11-09 06:30] LABS: CALCIUM 7.7 mg/dL (8.4-10.2); CREATININE, serum 1.36 mg/dL (0.72-1.25); POTASSIUM 4.3 mmol/L (3.5-4.5)
--- NOTE | 2021-11-09 07:58 | NUR ---
PATIENT RESTING COMFORTABLY IN BED. NO COMPLAINTS OF PAIN.
--- NOTE | 2021-11-09 09:01 | NUR ---
PT PLEASANTLY CONFUSED. INC OF URINE, BED CHANGE AND BED BATH PROVIDED. PT AOX1, NOT ORIENTED TO PLACE OR TIME. PT THOUGHT HE WAS IN [place] AND THAT IT WAS 1985. REORIENTED PT AND PERFORMED NEURO CHECK, ASSISTANT LIBRARIAN EQUAL, PUPILS REACTIVE TO LIGHT
--- NOTE | 2021-11-09 11:01 | NUR ---
correction worker met with patient to discuss discharge plan. Patient states that he lives at home with his Jenniffer ([phone]) in [place]. Patient's son Davis ([phone]) present at bedside. Patient states that he is mainly independent with her ADL's but his helps some. Patient states that he has access to a cane and a walker but does not utilize them. Patient has no home oxygen needs. PCP is Dr. Booth and he utilizes [facility] for medications with no cost difficulty. Patient states that he does have a DPOA-HC established and that his Jenniffer is his agent. Patient is currently established with [facility] for PT and nursing services. Discharge plan: Home with
--- NOTE | 2021-11-09 12:57 | NUR ---
AID REPOrted pt standing and reporting dizziness. pressure taken and elevated with a systolic of 160. german lynne notified adn ordered to continue to monitor but no further action was needed at this time.
--- NOTE | 2021-11-09 13:42 | NUR ---
Initial visit; Patient thanked Organ Pipe Finisher for looking in on him and offering God's blessings and to keep him in her prayers.
--- NOTE | 2021-11-09 14:21 | NUR ---
Clinical updates faxed to Snehal at [facility]
--- NOTE | 2021-11-09 18:03 | NUR ---
PT ALERT BUT NOT ORIENTED, HYDRALAZINE GIVEN AND PRESSURE TO BE REASSESSED. BED ALARM SET, FLUIDS INFUSING
[2021-11-10 03:46] VITALS: BP 136/67; PULSE 65; TEMP 97.5
--- NOTE | 2021-11-10 06:00 | NUR ---
ASSESSMENT COMPLETE FOR THIS SHIFT. PT RESTING IN BED WATCHING TV. PT A&O X 3, BUT UNABLE TO TELL ME THE CURRECT DATE. PT DENIED PAIN, PALPITATIONS, N,V,D, SOB OR DIZZINESS. PT IN HIGH SPIRITS, MAKING JOKES, LAUGHING, ETC. PT HAD A PRETTY GOOD NIGHT. PT EXPRESSED NO OTHER NEEDS AT THIS TIME. CALL LIGHT WITHIN REACH.
[2021-11-10 06:33] LABS: BASO % 0.4 % (0.0-2.0); EOS # 0.1 K/mm3 (0.0-0.7); GRAN # 3.9 K/mm3 (1.4-6.5); GRAN % 56.2 % (42.2-75.2); HEMATOCRIT 38.2 % (42.0-52.0); HEMOGLOBIN 12.9 g/dl (13.5-18.0); LYMPH # 2.3 K/mm3 (1.2-3.4); LYMPH % 33.6 % (20.0-51.0); MEAN CELL VOLUME 85 fl (80.0-100.0); MEAN CORPUSCULAR HEMOGLOBIN 29 pg (27-31); MEAN CORPUSCULAR HGB CONC 34 g/dl (33.0-37.0); MONO # 0.6 K/mm3 (0.1-0.6); MONO % 8.5 % (1.7-9.3); PLATELET COUNT 256 K/mm3 (130-400); RED BLOOD COUNT 4.48 M/mm3 (4.20-5.60); REDCELL DISTRIBUTION WIDTH-CV 14.6 % (11.5-14.5)
[2021-11-10 06:49] LABS: CALCIUM 7.4 mg/dL (8.4-10.2); CREATININE, serum 1.2 mg/dL (0.72-1.25)
[2021-11-10 07:27] VITALS: BP 168/73; PULSE 61; TEMP 97.5
--- NOTE | 2021-11-10 09:15 | NUR ---
PT PLEASANT, AOX2, NOT ORIENTED TO CURRENT TIME OR SITUATION. REORIENTED AND PT SAID " I DONT KNOW WHY I CANT REMEMBER ANY OF THIS", PT GRACIE NOVAK PLACED BACK ON PT, PT ASSESSMENT PERFORMED, NO OTHER NEEDS
[2021-11-10] MEDS ORDERED: PACERONE400 MG PO (12:44)
[2021-11-10 13:07] VITALS: BP 141/71; PULSE 92
[2021-11-10 13:08] VITALS: BP 146/76; BP 152/62; PULSE 67; PULSE 74
--- NOTE | 2021-11-10 13:08 | NUR ---
The patient is to discharge back home with his today, 11/10, and resume home health services for snf/PT/OT from [facility]. SW notified and faxed orders to Snehal at [facility]. No additional needs at this time.
[2021-11-10 15:59] VITALS: BP 169/87; PULSE 66; TEMP 97.2
--- NOTE | 2021-11-10 16:09 | NUR ---
DISCHARGE EDUCATION PROVIDED, IV REMOVED, TELE REMOVED, PT RECIEVED ASSISTANCE FROM PCT WITH DRESSING.
--- NOTE | 2021-11-10 16:30 | NUR ---
PT ESCORTED OUT VIA WHEELCHAIR WITH PT FAMILY AND PT BELONGINGS. NO OTHER NEEDS AT THIS TIME
== END 2021-11-10 16:30 | disposition home health service (06) ==
LOC: COL.ER 16:17 → MEDICAL 20:16
PROVIDERS: Emergency Medicine; Physician Assistant
DX: R42 Dizziness and giddiness (principal); I95.1 Orthostatic hypotension; R19.7 Diarrhea, unspecified; N17.9 Acute kidney failure, unspecified; I10 Essential (primary) hypertension; I48.19 Other persistent atrial fibrillation; E78.5 Hyperlipidemia, unspecified; R53.1 Weakness; Z20.822 Contact with and (suspected) exposure to COVID-19; F32.A Depression, unspecified; Z79.899 Other long term (current) drug therapy; Z79.82 Long term (current) use of aspirin; Z87.891 Personal history of nicotine dependence; Z95.0 Presence of cardiac pacemaker
CPT/HCPCS: 99233-AI; G0378; J0360; J1644; J7030; Q9967

== ENCOUNTER 2021-11-16 13:12 | Emergency (ER) | payer MEDICARE ==
[~2021-11-16] VITALS: Ht 188 cm; Wt 100.0 kg
[~2021-11-16 13:12] MED LIST changes: +PACERONE400 MG PO
[2021-11-16 13:15] VITALS: TEMP 98.7
[2021-11-16 13:43] LABS: BASO % 0.2 % (0.0-2.0); EOS % 0.2 % (0.0-4.0); GRAN # 6.4 K/mm3 (1.4-6.5); GRAN % 71.7 % (42.2-75.2); HEMATOCRIT 40.4 % (42.0-52.0); HEMOGLOBIN 13.5 g/dl (13.5-18.0); LYMPH # 1.5 K/mm3 (1.2-3.4); LYMPH % 16.3 % (20.0-51.0); MEAN CELL VOLUME 86 fl (80.0-100.0); MEAN CORPUSCULAR HEMOGLOBIN 29 pg (27-31); MEAN CORPUSCULAR HGB CONC 33 g/dl (33.0-37.0); MEAN PLATELET VOLUME 9.1 fl (7.4-10.4); PLATELET COUNT 267 K/mm3 (130-400); REDCELL DISTRIBUTION WIDTH-CV 14.6 % (11.5-14.5)
[2021-11-16 14:01] LABS: ALBUMIN 3.1 gm/dL (3.4-4.8); BILIRUBIN,TOTAL 1.7 mg/dL (0.2-1.2); CALCIUM 7.9 mg/dL (8.4-10.2); CREATININE, serum 1.48 mg/dL (0.72-1.25); POTASSIUM 4.1 mmol/L (3.5-4.5); TOTAL PROTEIN 5.5 gm/dL (6.2-8.1)
[2021-11-16 17:45] VITALS: BP 152/90; PULSE 60
--- NOTE | 2021-11-17 08:25 | NUR ---
SW responded to consult due to this being the 3rd visit this month for this patient with the same symptoms. SW attempted to reach the patients christina and was unsuccessful. Attempt made to contact the patients son Davis and spoke with him about the patients situation. Davis states that the patient and his Jenniffer had brought up fdc placement in conversation but nothing had been decided. He states that at one point in time the patient was at [facility] and liked it there. Davis states he will try and reach out to Jenniffer. This SW attempted to reach out to JORGE Miranda at [facility] to collaborate on the patient. Unsuccessful and message left. Reached out to Nicholas at [facility] who states that they "might" have a bed depending on the patients needs. Since i did not reach Jenniffer i did not send Nicholas a referral. Spoke with Victoria at [facility] who confirms that the patient was there as a SNF in 2019. Informed Victoria of the patients situation and she ask that i send her the patients ER documentation. Victoria quoted me $7,980 for a semi-private pay room up front and $9,120 for a private room. These amounts would be due at the time of admission. I informed the patient RN that i will reach out to the family due to the patient being discharged home.
--- NOTE | 2021-11-17 16:36 | NUR ---
LETITIA spoke with JORGE Beckwith about patient being in the ER and what i had talked with the patients son Davis about. Amena states that she will try and follow up with Jenniffer. SW attempted to reach Jenniffer to speak about the patients options. Unable to reach her. Message left.
== END 2021-11-16 17:50 | disposition home or self-care (01) ==
LOC: COL.ER 13:12
PROVIDERS: Family Medicine
DX: R53.1 Weakness (principal); E86.0 Dehydration
CPT/HCPCS: J7030

== ENCOUNTER 2022-01-15 16:41 | Emergency (ER) | payer MEDICARE ==
[~2022-01-15] VITALS: Ht 188 cm; Wt 65.9 kg
[2022-01-15 17:40] LABS: BASO % 0.3 % (0.0-2.0); EOS % 0.4 % (0.0-4.0); GRAN # 5.3 K/mm3 (1.4-6.5); GRAN % 75.2 % (42.2-75.2); LYMPH # 1.2 K/mm3 (1.2-3.4); LYMPH % 16.6 % (20.0-51.0); MEAN CELL VOLUME 93 fl (80.0-100.0); MEAN CORPUSCULAR HEMOGLOBIN 30 pg (27-31); MEAN CORPUSCULAR HGB CONC 33 g/dl (33.0-37.0); MEAN PLATELET VOLUME 9.2 fl (7.4-10.4); MONO # 0.5 K/mm3 (0.1-0.6); MONO % 7.2 % (1.7-9.3); PLATELET COUNT 289 K/mm3 (130-400); RED BLOOD COUNT 3.62 M/mm3 (4.20-5.60); REDCELL DISTRIBUTION WIDTH-CV 14.6 % (11.5-14.5)
[2022-01-15 17:42] LABS: HEMATOCRIT 33.6 % (42.0-52.0)
[2022-01-15 17:56] LABS: ALANINE AMINOTRANSFERASE 12 U/L (0-55); ALKALINE PHOSPHATASE 74 U/L (40-150); ANION GAP 11 mmol/L (7-16); AST,SGOT 16 U/L (5-34); BILIRUBIN,TOTAL 2.6 mg/dL (0.2-1.2); BLOOD UREA NITROGEN 20 mg/dL (8-26); C-REACTIVE PROTEIN 4.22 mg/dL (0.00-0.50); CALCIUM 7.7 mg/dL (8.4-10.2); CARBON DIOXIDE 25 mmol/L (23-31); CHLORIDE 105 mmol/L (98-107); CREATININE, serum 1.09 mg/dL (0.72-1.25); GLUCOSE 99 mg/dL (70-99); POTASSIUM 3.1 mmol/L (3.5-4.5); SODIUM 141 mmol/L (136-145); TOTAL PROTEIN 5.9 gm/dL (6.2-8.1)
[2022-01-15 18:03] LABS: TROPONIN-I < 0.010 ng/mL (0.00-0.033)
[2022-01-15 19:47] LABS: COLLECTION METHOD CLEAN CATCH
[2022-01-15 19:53] LABS: MUCOUS Present (NOT PRESENT); PH 5 (5-8); SQUAMOUS EPITHELIAL 0-2 /hpf (0-10); URINE APPEARANCE Clear (CLEAR/HAZY); URINE BACTERIA None Seen /hpf (NONE SEEN); URINE BILIRUBIN Negative (NEGATIVE); URINE BLOOD Negative (NEGATIVE); URINE COLOR Yellow (YELLOW); URINE GLUCOSE Negative (NEGATIVE); URINE KETONE Negative (NEGATIVE); URINE LEUKOCYTE ESTERASE Negative (NEGATIVE); URINE NITRATE Negative (NEGATIVE); URINE PROTEIN(semi-quant) Negative (NEGATIVE); URINE RBC 0-2 /hpf (0-2); URINE UROBILINOGEN >=4.0 (NEGATIVE)
[2022-01-15 22:27] VITALS: BP 179/107; PULSE 68; TEMP 98.2
--- NOTE | 2022-01-16 12:32 | NUR ---
[employer] received consult in the ED for patient who has been having multiple falls at home. Consult lists concern for 's ability to care for him at home. LETITIA contacted Hebert at [facility] who advised they currently provide services in the home and have concerns about patient's ability to safely live at home at this time. Hebert advised Eve RN-Chief Internal Auditor has been concerned with patient living at home and has attempted to discuss other options with patient and his , Jenniffer. According to Hebert, Eve will be filing a report with Adult Protective Services and they have also consulted Gardenia, a social service technician at [facility] for assistance. LETITIA attempted to contact patient's , Jenniffer and left a message. LETITIA then contacted patient's son, Pa to follow up. Pa advised that he is going over there today to check in and also help get patient up. Pa reports patient has had multiple falls and had another one this morning. Pa advised that patient has been weak and while he feels SNF is a good idea, Jenniffer and patient don't necessarily agree and prefer to keep patient at home. Pa confirmed that a rn case manager from [facility] has attempted to discuss LTC options and finances. Pa plans to discuss this further with patient and Jenniffer and stated he would follow up with LETITIA if patient would become agreeable to placement.
== END 2022-01-15 22:35 | disposition home or self-care (01) ==
LOC: COL.ER 16:41
PROVIDERS: Nurse Practitioner
DX: S32.591A Other specified fracture of right pubis, initial encounter for closed fracture (principal); S50.311A Abrasion of right elbow, initial encounter; R53.83 Other fatigue; R29.6 Repeated falls; Z87.891 Personal history of nicotine dependence; W01.198A Fall on same level from slipping, tripping and stumbling with subsequent striking against other object, initial encounter
CPT/HCPCS: J7030

== ENCOUNTER 2022-07-23 11:15 | Emergency (ER) | payer MEDICARE ==
[~2022-07-23] VITALS: Ht 188 cm; Wt 100.0 kg
[~2022-07-23 11:15] MED LIST changes: +AMOXICILLIN 8751 TAB PO; +CORDARONE200 MG/TAB PO
[2022-07-23 11:19] VITALS: TEMP 97.7
[2022-07-23 11:56] LABS: BASO % 0.5 % (0.0-2.0); EOS # 0.1 K/mm3 (0.0-0.7); EOS % 1.8 % (0.0-4.0); GRAN # 4.1 K/mm3 (1.4-6.5); GRAN % 73.2 % (42.2-75.2); HEMATOCRIT 38.2 % (42.0-52.0); HEMOGLOBIN 12.5 g/dl (13.5-18.0); LYMPH # 1.1 K/mm3 (1.2-3.4); LYMPH % 18.9 % (20.0-51.0); MEAN CELL VOLUME 90 fl (80.0-100.0); MEAN CORPUSCULAR HEMOGLOBIN 30 pg (27-31); MEAN CORPUSCULAR HGB CONC 33 g/dl (33.0-37.0); MEAN PLATELET VOLUME 9.5 fl (7.4-10.4); MONO # 0.3 K/mm3 (0.1-0.6); MONO % 5.1 % (1.7-9.3); PLATELET COUNT 280 K/mm3 (130-400); RED BLOOD COUNT 4.24 M/mm3 (4.20-5.60); REDCELL DISTRIBUTION WIDTH-CV 13.1 % (11.5-14.5)
[2022-07-23 12:04] LABS: ALBUMIN 3.1 gm/dL (3.4-4.8); CALCIUM 8.8 mg/dL (8.4-10.2); CREATININE, serum 1.42 mg/dL (0.72-1.25); MAGNESIUM 2.1 mg/dL (1.6-2.6); PHOSPHOROUS 3.2 mg/dL (2.3-4.7); POTASSIUM 3.7 mmol/L (3.5-4.5)
[2022-07-23 12:13] LABS: TROPONIN-I 0.013 ng/mL (0.00-0.033)
[2022-07-23 15:34] VITALS: BP 192/98; PULSE 65
== END 2022-07-23 15:43 | disposition home or self-care (01) ==
LOC: COL.ER 11:15
PROVIDERS: Emergency Medicine
DX: S00.83XA Contusion of other part of head, initial encounter (principal); N28.9 Disorder of kidney and ureter, unspecified; R94.31 Abnormal electrocardiogram [ECG] [EKG]; Z95.0 Presence of cardiac pacemaker; W19.XXXA Unspecified fall, initial encounter

== ENCOUNTER 2022-11-19 22:58 | Emergency (ER) | payer MEDICARE ==
[~2022-11-19] VITALS: Ht 188 cm; Wt 72.7 kg
[2022-11-19 23:08] VITALS: TEMP 98.8
[2022-11-19 23:30] LABS: BASO % 0.4 % (0.0-2.0); EOS # 0.3 K/mm3 (0.0-0.7); EOS % 2.9 % (0.0-4.0); GRAN # 6.3 K/mm3 (1.4-6.5); GRAN % 69.3 % (42.2-75.2); HEMATOCRIT 42.7 % (42.0-52.0); HEMOGLOBIN 13.9 g/dl (13.5-18.0); LYMPH # 1.8 K/mm3 (1.2-3.4); LYMPH % 19.9 % (20.0-51.0); MEAN CELL VOLUME 90 fl (80.0-100.0); MEAN CORPUSCULAR HEMOGLOBIN 29 pg (27-31); MEAN CORPUSCULAR HGB CONC 33 g/dl (33.0-37.0); MEAN PLATELET VOLUME 9.7 fl (7.4-10.4); MONO # 0.7 K/mm3 (0.1-0.6); MONO % 7.2 % (1.7-9.3); PLATELET COUNT 231 K/mm3 (130-400); RED BLOOD COUNT 4.75 M/mm3 (4.20-5.60); REDCELL DISTRIBUTION WIDTH-CV 14.1 % (11.5-14.5)
[2022-11-19 23:49] LABS: ALBUMIN 3.3 gm/dL (3.4-4.8); BILIRUBIN,TOTAL 1.5 mg/dL (0.2-1.2); CALCIUM 8.9 mg/dL (8.4-10.2); CREATININE, serum 1.48 mg/dL (0.72-1.25); POTASSIUM 4.7 mmol/L (3.5-4.5); TOTAL PROTEIN 6.8 gm/dL (6.2-8.1)
[2022-11-19 23:54] LABS: TROPONIN-I 0.01 ng/mL (0.00-0.033)
[2022-11-20] MEDS ORDERED: DOXYCYCLINE 10100 MG PO (00:24)
[2022-11-20] MEDS ORDERED: PREDNISONE20 MG PO (00:24)
[2022-11-20 01:19] VITALS: BP 140/64; PULSE 78
== END 2022-11-20 01:39 | disposition home or self-care (01) ==
LOC: COL.ER 22:58
PROVIDERS: Emergency Medicine
DX: J18.9 Pneumonia, unspecified organism (principal); R94.4 Abnormal results of kidney function studies; Z20.822 Contact with and (suspected) exposure to COVID-19
CPT/HCPCS: J7512